=== PATIENT | female | born 1970 | race Caucasian/White ===

== ENCOUNTER → 2018-12-05 | Outpatient (CLI) | payer OTHER | LOC: MRI 08:36 | DX: R16.0 Hepatomegaly, not elsewhere classified (principal) ==

== ENCOUNTER → 2019-10-29 | Outpatient (CLI) | payer OTHER ==
[2019-10-29 08:39] LABS: CREATININE 0.9 mg/dL (0.6-1.0)
== END ==
LOC: CAT 07:43
PROVIDERS: ATTEND Nurse Practitioner
DX: R16.0 Hepatomegaly, not elsewhere classified (principal); K76.0 Fatty (change of) liver, not elsewhere classified; R16.1 Splenomegaly, not elsewhere classified

== ENCOUNTER → 2019-12-03 | Outpatient (CLI) | payer OTHER | LOC: NUC 07:32 | PROVIDERS: ATTEND Specialist | DX: R10.11 Right upper quadrant pain (principal) ==

== ENCOUNTER → 2019-12-22 | Outpatient (CLI) | payer OTHER | LOC: LAB 08:00 | PROVIDERS: ATTEND Anesthesiology | DX: Z01.818 Encounter for other preprocedural examination (principal); Z11.59 Encounter for screening for other viral diseases ==

== ENCOUNTER → 2020-02-26 | Outpatient (CLI) | payer OTHER | LOC: LAB 09:30 | PROVIDERS: ATTEND Family Medicine | DX: Z20.828 Contact with and (suspected) exposure to other viral communicable diseases (principal) ==

== ENCOUNTER 2020-04-12 11:07 | Emergency (ER) | payer OTHER ==
[~2020-04-12] VITALS: Ht 175.3 cm; Wt 117.9 kg
[2020-04-12 11:32] LABS: URINE BILIRUBIN NEGATIVE (Negative); URINE BLOOD TRACE (Negative); URINE CLARITY CLEAR; URINE COLOR YELLOW; URINE GLUCOSE-RANDOM* NEGATIVE (Negative); URINE KETONES NEGATIVE (Negative); URINE LEUKOCYTES-REFLEX TRACE (Negative); URINE NITRITE-REFLEX NEGATIVE (Negative); URINE PROTEIN (DIPSTICK) NEGATIVE (Negative); URINE UROBILINOGEN 0.2 E.U./dl (0.2-1.0)
[2020-04-12 12:32] LABS: ABSOLUTE NEUTROPHILS 5.7 thou/uL (1.4-8.2); BASOPHILS 1.3 % (0.0-2.0); EOSINOPHILS 1.6 % (0.0-3.0); HEMATOCRIT 41.1 % (37.0-47.0); HEMOGLOBIN 13.7 gm/dL (12.0-15.0); MCH 30.4 pg (26.0-34.0); MCHC 33.3 g/dL (28.0-37.0); MCV 91.2 fL (80.0-100.0); MONOCYTES 6.7 % (1.0-8.0); PLATELET COUNT 204 thou/uL (150-400); POLYS 57.4 % (36.0-66.0); RDW 13.8 % (10.5-14.5)
[2020-04-12 12:37] LABS: CALCIUM 9.9 mg/dL (8.5-10.1); POTASSIUM 4.1 mmol/L (3.5-5.1)
[2020-04-12 12:43] LABS: ALBUMIN 3.6 g/dL (3.4-5.0); TOTAL BILIRUBIN 0.3 mg/dL (0.2-1.0); TOTAL PROTEIN 7.1 g/dL (6.4-8.2)
[2020-04-12 14:41] VITALS: BP 142/80
== END 2020-04-12 14:42 | disposition home or self-care (01) ==
LOC: ER 11:07
PROVIDERS: Physician Assistant
DX: R10.11 Right upper quadrant pain (principal); R10.33 Periumbilical pain; Z90.49 Acquired absence of other specified parts of digestive tract

== ENCOUNTER → 2021-03-01 | Outpatient (CLI) | payer OTHER | LOC: RAD 09:50 | PROVIDERS: ATTEND Family Medicine | DX: E04.2 Nontoxic multinodular goiter (principal) ==

== ENCOUNTER → 2021-03-01 | Outpatient (CLI) | payer OTHER | LOC: BC 09:37 | PROVIDERS: ATTEND Nurse Practitioner | DX: Z12.31 Encounter for screening mammogram for malignant neoplasm of breast (principal) ==

== ENCOUNTER → 2021-03-08 | Outpatient (CLI) | payer OTHER | LOC: CAT 07:47 | PROVIDERS: ATTEND Family Medicine | DX: Z13.6 Encounter for screening for cardiovascular disorders (principal) ==

== ENCOUNTER → 2021-03-10 | Outpatient (CLI) | payer OTHER ==
--- NOTE | 2021-03-17 10:26 | PATH ---
[facility] [address] [place] [address] PATHOLOGY RPT PROCEDURE Name: REYES CARMONA Room #: REG ANNA Kc.#: [id number] Admission: 03/10/21 Date of : 70 Discharge: Report #: [id number] Path Case #: [id number] Note [facility] Accession Number: [id number] TESTS RESULT FLAG UNITS REF RANGE LAB Clinician Provided Cytology Information No. of containers..01 Other (Miscellaneous) Source: RT THYROID DIAGNOSIS: RT THYROID NEGATIVE FOR MALIGNANT CELLS. B[place]ESDA CATEGORY II. SPECIMEN CONSISTS OF BENIGN FOLLICULAR CELLS, HEMOSIDERIN-LADEN MACROPHAGES, COLLOID, AND BLOOD. THIS PATTERN IS CONSISTENT WITH A BENIGN FOLLICULAR NODULE. COLLOID IS PRESENT. RED BLOOD CELLS ARE PRESENT. Pathologist ICD10: 02 E04.1 Signed out by: 02 Ji Lemus MD, Pathologist NPI- [id number] Performed by: 01 Destiny Pacheco, Attorney At Law ([facility]) Gross description: 01 40ML, CLEAR, RED /LCS 03/11/2021 1846 Local FLAG LEGEND: L-Low Normal,H-High Normal,LL-Alert Low,HH-Alert High <-Panic Low,>-Panic High,A-Abnormal,AA-Critical Abnormal Performed at: [address] [place] [address] Jason Soni MD, [address] [place] [id number] Ji Lemus MD, Specimen Comment: A duplicate report has been generated due to demographic updates. Performed at: [address], [place] [id number] MD Jason Soni MD Phone: [phone]
== END | disposition home or self-care (01) ==
LOC: ULTRA 13:08
PROVIDERS: ATTEND Family Medicine
DX: E04.1 Nontoxic single thyroid nodule (principal)